=== PATIENT | male | born 1970 | race Caucasian/White ===

== ENCOUNTER 2019-10-29 04:06 | Emergency (ER) | END 2019-10-29 04:12 | LOC: ERS 04:06 | DX: F10.129 Alcohol abuse with intoxication, unspecified (principal) | CPT/HCPCS: 99283 ==

== ENCOUNTER 2020-04-07 13:15 | Emergency (ER) ==
[2020-04-07] MEDS ORDERED: Mag-Al 1200 mg/1200 mg/30 ML UDCUP ONE (14:50)
[2020-04-07] MEDS ORDERED: Meclizine HCl 25 MG TAB ONE (14:50)
== END 2020-04-07 15:05 | disposition home or self-care (01) ==
LOC: ERS 13:15
DX: H81.10 Benign paroxysmal vertigo, unspecified ear (principal); R29.700 NIHSS score 0
CPT/HCPCS: 93005